=== PATIENT | male | born 1965 | race Caucasian/White ===

== ENCOUNTER 2020-08-29 10:11 | Day surgery (SDC) | payer OTHER ==
[2020-08-27 12:04] LABS: COVID AG,FIA SOURCE NASOPHARYNGEAL
[~2020-08-29] VITALS: Ht 165.1 cm; Wt 79.5 kg
[2020-08-29] MEDS ORDERED: DEXAMETHASONE SOD PHOS 4 MG/ML VIAL IVP ONE (10:12)
[2020-08-29] MEDS ORDERED: MIDAZOLAM HCL 2 MG/2 ML VIAL IVP ONE (10:12)
[2020-08-29] MEDS ORDERED: KETAMINE HCL 50 MG/ML 10 ML VIAL IVP ONE (10:12)
[2020-08-29] MEDS ORDERED: ROCURONIUM BROMIDE 10 MG/ML 5 ML VIAL IVP ONE (10:12)
[2020-08-29] MEDS ORDERED: FentaNYL CITRATE PF 100 MCG/2 ML VIAL IVP ONE (10:12)
[2020-08-29] MEDS ORDERED: 0.9% SODIUM CHLORIDE 10 ML VIAL IVP ONE (10:12)
[2020-08-29] MEDS ORDERED: SUCCINYLCHOLINE CHLORIDE 20 MG/ML 10 ML VIAL IVP ONE (10:12)
[2020-08-29] MEDS ORDERED: MORPHINE SULFATE/PF 0.5 MG/ML 10 ML AMP IVP ONE (10:12)
[2020-08-29] MEDS ORDERED: PROPOFOL 1% 20 ML VIAL IVP ONE (10:12)
[2020-08-29] MEDS ORDERED: ONDANSETRON HCL 4 MG/2 ML VIAL IVP ONE (10:12)
[2020-08-29] MEDS ORDERED: LIDOCAINE/PF 2% 5 ML VIAL IM ONE (10:12)
[2020-08-29] MEDS ORDERED: RINGERS SOLUTION,LACTATED 1,000 ML IV ONE ×2 (10:30→10:39)
[2020-08-29] MEDS ORDERED: SODIUM CL IRRIG SOLN BAG 3,000 ML IRRIG ONE (11:35)
[2020-08-29] MEDS ORDERED: ACETAMINOPHEN 1000 MG/ISO-OSM 100 ML IV ONE (11:36)
[2020-08-29] MEDS ORDERED: BUPIVACAINE/EPI/PF 0.5% 30 ML VIAL ONE (11:39)
[2020-08-29] MEDS ORDERED: BACITRACIN 50,000 UNITS/VIAL ONE (11:40)
[2020-08-29] MEDS ORDERED: SODIUM CHLORIDE 0.9% 0 ML ONE (11:40)
[2020-08-29] MEDS ORDERED: SUGAMMADEX SODIUM 200 MG/2 ML VIAL IVP ONE (11:42)
[2020-08-29] MEDS ORDERED: BUPIVACAINE LIPOSOME/PF 1.3%-13.3MG/ML SUSPENSION 20 ML VIAL INJ ONE (11:45)
[2020-08-29] MEDS ORDERED: BUPIVACAINE HCL/PF 0.5% 30 ML VIAL ONE (11:46)
[2020-08-29] MEDS ORDERED: FentaNYL CITRATE PF 100 MCG/2 ML VIAL IVP PRN (13:15)
[2020-08-29] MEDS ORDERED: MEPERIDINE-PF 25 MG/ML VIAL IVP PRN (13:15)
[2020-08-29] MEDS ORDERED: HYDROmorphone 2 MG/ML VIAL IVP PRN (13:15)
[2020-08-29] MEDS ORDERED: OXYGEN THERAPY IH SCH (20:00)
== END 2020-08-30 14:29 | disposition home or self-care (01) ==
LOC: SURGERY 10:11
PROVIDERS: ATTEND Orthopaedic Surgery
DX: S42.001A Fracture of unspecified part of right clavicle, initial encounter for closed fracture (principal); V09.9XXA Pedestrian injured in unspecified transport accident, initial encounter; Y93.I9 Activity, other involving external motion; Y92.89 Other specified places as the place of occurrence of the external cause; Y99.8 Other external cause status
CPT/HCPCS: 23515; 87426; 93005; A9575; C1713; C9290; C9803; J0131; J0330; J0690; J1100; J2250; J2274; J2405; J2704; J3010; J3490 ×4; J7120